=== PATIENT | female | born 1980 | race Caucasian/White ===

== ENCOUNTER 2024-07-13 14:58 | Emergency (ER) | payer BC, SELFPAY ==
[2024-07-13 15:04] VITALS: BP 149/84
[2024-07-13 15:27] LABS: % Basophils 0.4 % (0-2); % Eosinophils 3.2 % (0-6); % Immature Granulocytes 0.2 % (0-0.5); % Lymphocytes 27.6 % (20.5-51.1); % Monocytes 8.2 % (1.7-9.3); % Neutrophils 60.4 % (42.2-75.2); Absolute Eosinophils 0.2 10^3/uL (0-0.7); Absolute Lymphocytes 1.5 10^3/uL (1.2-3.4); Absolute Monocytes 0.4 10^3/uL (0.1-0.6); Absolute Neutrophils 3.2 10^3/uL (1.4-6.5); Hematocrit 37.7 % (37.0-47.0); Hemoglobin 13.1 g/dL (12.0-16.0); Mean Corp Hgb Conc. 34.7 g/dL (33.0-37.0); Mean Corpuscular Hgb 29.2 pg (27.0-31.0); Mean Platelet Volume 10.8 fL (7.4-10.4); Nucleated Red Blood Cells % 0 %; Platelet Count 246 10^3/uL (130-400); Red Blood Cell Count 4.49 10^6/uL (4.20-5.40); Red Cell Dist. Width 13.5 % (11.5-14.5); White Blood Cell Count 5.4 10^3/uL (4.8-10.8)
[2024-07-13 15:30] LABS: Urine Albumin Negative (Neg - Trace); Urine Bilirubin Negative (Negative); Urine Character Clear (Clear); Urine Color Yellow; Urine Glucose 3+ (Negative); Urine Ketone Negative (Negative); Urine Leukocyte Negative (Negative); Urine Nitrite Negative (Negative); Urine Occult Blood Negative (Negative); Urine Specific Gravity 1.015 (<1.030); Urine Urobilinogen Negative (Neg - 1+)
[2024-07-13 15:37] LABS: HCG, Serum Qualitative Screen Negative
[2024-07-13 15:43] LABS: ALT (SGPT) 12 U/L (0-35); AST (SGOT) 16 U/L (14-36); Alkaline Phosphatase 53 U/L (38-126); Blood Urea Nitrogen 8 mg/dl (7-17); Calcium 9.5 mg/dl (8.4-10.2); Carbon Dioxide 28 mmol/L (22-30); Chloride 103 mmol/L (98-107); Glucose 210 mg/dl (70-99); Sodium 136 mmol/L (135-145); Total Bilirubin 0.6 mg/dl (0.2-1.3); Total Protein 6.6 g/dl (6.3-8.2); eGFR > 60.00
[2024-07-13 15:58] VITALS: BMI 32.3
--- NOTE | 2024-07-13 18:35 | ED.GENMED ---
History of Present Illness
General
Chief Complaint: Flank Pain
Source: patient
Exam Limitations: none
Time Seen by Provider: 07/13/24 16:34
Nursing documentation reviewed up to this point in time: agreed with
History of Present Illness
History of Present Illness:
44-year-old female past medical history of diabetes presenting to the emergency department today with concerns of left-sided flank discomfort over the past week. Was started on Cipro by the primary care doctor but did not have any specific testing
prior to starting this medication. Pain seems to be worsened in some positions and seems to improve when standing up. Denies any fevers chest pain shortness of breath no vomiting. Some mild nausea.
Past History
Past History
ED Past Medical History: IDDM
ED Past Surgical History:
Social History
Tobacco: Non-smoker
Alcohol: Occasional
Personal:
Living: with family
Employment: Employed
Review of Systems
Review of Systems
Allergies reviewed?: Yes
All Other Systems: ROS reviewed and negative except as documented in HPI and ROS
Phy Exam
Physical Exam
Physical Exam:
GENERAL: Alert , in no apparent distress
EYE: pupils equal and reactive
NECK: Supple, no significant adenopathy.
ENT: o/p clr, mmm.
CARDIAC: Regular rate and rhythm .
LUNGS: Clear breath sounds bilaterally, no acute respiratory distress, no wheezes/rales/rhonchi
ABDOMEN: Mild left-sided CVA pain to percussion. Soft, without focal tenderness, no r/g, no cvat
NEUROLOGICAL: Alert and oriented, no focal neuro deficits
SKIN: Warm and dry, skin intact.
MUSCULOSKELETAL: No edema, well perfused.
PSYCH: Normal and appropriate interaction.
Course
Orders/Labs/Results
Orders:
Orders
07/13/24 15:08
Test Result ONCE
07/13/24 15:13
Urinalysis Reflex To Culture Urgent
Date Specimen was Collected: 07/13/24
Time Specimen was Collected: 15:08
07/13/24 15:15
Complete Blood Count/With Diff Urgent
Comprehensive Metabolic Panel Urgent
HCG, Serum Qualitative Screen Urgent
07/13/24 16:39
CT Abd/pel Without Iv Or Oral Urgent
Comment:
Reason For Exam: flank pain urine sytmpoms
07/13/24 18:03
EKG- Treatment ONCE
Abnormal Lab Results
07/13/24 07/13/24
15:13 15:15
MPV 10.8 H fL
(7.4-10.4)
Glucose 210 H mg/dl
(70-99)
Urine Glucose 3+ A
(Negative)
07/13/24 15:15
07/13/24 15:15
Vital Signs
Initial and Last Documented VS:
Initial Vital Signs
Temp Pulse Resp BP Pulse Ox
98.0 F 71 18 149/84 100
07/13/24 15:04 07/13/24 15:04 07/13/24 15:04 07/13/24 15:04 07/13/24 15:04
Last Documented Vital Signs
Temp Pulse Resp BP Pulse Ox
98.0 F 71 18 149/84 100
07/13/24 15:04 07/13/24 15:04 07/13/24 15:04 07/13/24 15:04 07/13/24 15:04
MDM/Problems Addressed
MDM/Problems Addressed:
44-year-old female presenting to the emergency department today with concerns of left-sided flank discomfort over the past week or so. On arrival mildly hypertensive otherwise vital signs are normal. Afebrile with normal pulse labs unremarkable
other than elevated glucose level. Patient does have a history of diabetes. Urinalysis without evidence of infection. No evidence of emergent process on CT patient with likely mechanical pain stable for outpatient management. Return precautions
given.
*Critical Care Note
Total Time (30-74mins, 75-104mins- exclusive of procedures): Not Applicable
ED Attending Note
-
Portions of this chart may have been created with voice recognition software.� Occasional wrong word or��sound alike� substitutions may have occurred due to the inherent limitations of voice recognition software.
Discharge Plan
Departure
Patient Disposition: Home (Routine Discharge)
Date of Disposition: 07/13/24
Time of Disposition: 18:52
Patient with high blood pressure during this ER visit?: No
Condition: Good
Covid-19: Not Applicable
Discharge Problem:
Low back pain
Instructions: Back Pain
Prescriptions:
No Action
nitrofurantoin macrocrystal 100 mg capsule
100 mg PO Q12H 5 Days Qty: 10 0RF
Referrals:
Rosalina Mathews MD [Family Provider] -
Activity Restrictions/Additional Instructions:
You came to the emergency department today with concerns of back discomfort. Here you have a reassuring assessment. Please closely as an outpatient. Return for any worsening, new or concerning symptoms.
Interventions
Interventions:
*Risk Screen - Suicide Last Done: 07/13/24 15:04
*General Assessment Last Done: 07/13/24 15:04
*Neglect/Abuse Screening Last Done: 07/13/24 19:01
*ED COVID-19 Vaccine History Last Done: 07/13/24 15:53
*Nursing Disposition Last Done: 07/13/24 19:01
PM-Ozgvvq-Zjgfavmcqk Assessment Last Done: 07/13/24 15:53
ED-Female Genitourinary Assessment Last Done: 07/13/24 15:53
Discharge Date and Time
Discharge Date/Time: 07/13/24 19:02
Print Language: [place]
== END 2024-07-13 19:02 | disposition home or self-care (01) ==
LOC: EMR 14:58
PROVIDERS: EMERGENCY PHYSICIAN Emergency Medicine; FAMILY PHYSICIAN Internal Medicine
DX: M54.50 Low back pain, unspecified (principal); E11.65 Type 2 diabetes mellitus with hyperglycemia
CPT/HCPCS: 99284; 74176; 80053; 81003; 84703; 85025

== ENCOUNTER 2024-09-06 13:32 | Emergency (ER) | payer BC, SELFPAY ==
[2024-09-06 13:34] VITALS: BP 162/93
[2024-09-06 14:03] LABS: % Basophils 0.3 % (0-2); % Eosinophils 2.6 % (0-6); % Immature Granulocytes 0.3 % (0-0.5); % Lymphocytes 25.2 % (20.5-51.1); % Monocytes 8.8 % (1.7-9.3); % Neutrophils 62.8 % (42.2-75.2); Absolute Eosinophils 0.2 10^3/uL (0-0.7); Absolute Lymphocytes 1.5 10^3/uL (1.2-3.4); Absolute Monocytes 0.5 10^3/uL (0.1-0.6); Absolute Neutrophils 3.7 10^3/uL (1.4-6.5); Hematocrit 36.6 % (37.0-47.0); Hemoglobin 12.9 g/dL (12.0-16.0); Mean Corp Hgb Conc. 35.2 g/dL (33.0-37.0); Mean Corpuscular Hgb 28.9 pg (27.0-31.0); Mean Corpuscular Volume 81.9 fL (81.0-99.0); Mean Platelet Volume 11.1 fL (7.4-10.4); Nucleated Red Blood Cells % 0 %; Platelet Count 208 10^3/uL (130-400); Red Blood Cell Count 4.47 10^6/uL (4.20-5.40); Red Cell Dist. Width 13.4 % (11.5-14.5); White Blood Cell Count 5.9 10^3/uL (4.8-10.8)
[2024-09-06 14:08] LABS: HCG, Serum Qualitative Screen Negative
[2024-09-06 14:09] LABS: ALT (SGPT) 11 U/L (0-35); AST (SGOT) 15 U/L (14-36); Albumin 4.3 g/dl (3.5-5.0); Alkaline Phosphatase 48 U/L (38-126); Blood Urea Nitrogen 9 mg/dl (7-17); Calcium 9.3 mg/dl (8.4-10.2); Carbon Dioxide 24 mmol/L (22-30); Chloride 106 mmol/L (98-107); Glucose 238 mg/dl (70-99); Sodium 136 mmol/L (135-145); Total Bilirubin 0.8 mg/dl (0.2-1.3); Total Protein 6.8 g/dl (6.3-8.2); eGFR > 60.00
[2024-09-06 17:13] VITALS: BP 183/89
--- NOTE | 2024-09-06 17:27 | ED.GENMED ---
History of Present Illness
General
Chief Complaint: Abdominal Pain
Source: patient
Time Seen by Provider: 09/06/24 17:08
History of Present Illness
History of Present Illness:
44-year-old female presents to the emergency room complaining of pain in her right flank radiating down to the groin area. Patient states that waxes and wanes in intensity. Nothing really seems to make it better or worse. She had a similar
episode of pain which she thought was related to shingles as she has had several episodes of shingles. The rash is typically come out on her left neck. She had noted some brownish discoloration to her urine. She denies any fever or chills. She
denies any dysuria or frequency. She denies nausea vomiting or diarrhea. She has had previous C-sections but no other abdominal surgery.
Past History
Past History
ED Past Medical History: IDDM
ED Past Surgical History:
Social History
Tobacco: Non-smoker
Alcohol: Occasional
Personal:
Living: with family
Employment: Employed
Phy Exam
Physical Exam
Physical Exam:
General: Awake, Alert, Oriented X3. No acute distress.
Vitals: unremarkable
Head: Atraumatic
Eyes: Pupils equal, EOMI
Throat: Airway intact, no exudates
Neck: Trachea midline
Lungs: Clear and equal b/l
Heart: Regular rate, no murmurs
Abd: Soft, Nontender, No pulsatile mass
Back: No CVA tenderness to percussion
Neuro: Nonfocal
Skin: Warm, dry, no rash
Extremities: pulses equal b/l, no edema
Course
Orders/Labs/Results
Orders:
Orders
09/06/24 13:36
Test Result ONCE
09/06/24 13:45
Complete Blood Count/With Diff Urgent
Comprehensive Metabolic Panel Urgent
HCG, Serum Qualitative Screen Urgent
09/06/24 17:24
Ketorolac [Toradol] 15 mg IV NOW STA
09/06/24 17:26
CT Abd/pelvis W Iv Cont Urgent
Comment:
Reason For Exam: rlq abd pain
09/06/24 20:07
Urinalysis Reflex To Culture Urgent
Date Specimen was Collected: 09/06/24
Time Specimen was Collected: 19:52
Urine Microscopic Reflex Cult Urgent
Abnormal Lab Results
09/06/24 09/06/24
13:45 20:07
Hct 36.6 L %
(37.0-47.0)
MPV 11.1 H fL
(7.4-10.4)
Glucose 238 H mg/dl
(70-99)
Urine Ketones 1+ A
(Negative)
Urine Albumin (Reflex) 1+ A
(Neg - Trace)
09/06/24 13:45
09/06/24 13:45
Vital Signs
Initial and Last Documented VS:
Initial Vital Signs
Temp Pulse Resp BP Pulse Ox
98.3 F 73 16 162/93 99
09/06/24 13:34 09/06/24 13:34 09/06/24 13:34 09/06/24 13:34 09/06/24 13:34
Last Documented Vital Signs
Temp Pulse Resp BP Pulse Ox
98.3 F 63 18 139/77 100
09/06/24 13:34 09/06/24 20:55 09/06/24 20:55 09/06/24 20:55 09/06/24 20:55
MDM/Problems Addressed
Differential Diagnosis Includes:
Appendicitis, ovarian cyst, kidney stone, urinary tract infection
MDM/Problems Addressed:
Patient presents with right flank pain rating to the groin. Presentation seems most consistent with a kidney stone however her CT does not show evidence of a stone or hydronephrosis. Urinalysis is basically normal. Suspect more musculoskeletal
etiology that the patient has this history of zoster. She has Valtrex at home and so we will recommend she take this for 5 days in case this does field return repairer to be herpes zoster. Recommend follow-up with the primary care provider. Certainly no
evidence for an unstable process requiring hospitalization
*Radiology
Radiology exam reviewed: radiology read reviewed
*Pulse Oximetry
Patient hypoxic: no
*Critical Care Note
Total Time (30-74mins, 75-104mins- exclusive of procedures): Not Applicable
ED Attending Note
-
Portions of this chart may have been created with voice recognition software.� Occasional wrong word or��sound alike� substitutions may have occurred due to the inherent limitations of voice recognition software.
Discharge Plan
Departure
Patient Disposition: Home (Routine Discharge)
Date of Disposition: 09/06/24
Time of Disposition: 20:57
Patient with high blood pressure during this ER visit?: No
Condition: Good
Discharge Problem:
Abdominal pain
Instructions: Abdominal Pain
Prescriptions:
No Action
nitrofurantoin macrocrystal 100 mg capsule
100 mg PO Q12H 5 Days Qty: 10 0RF
Referrals:
Rosalina Mathews MD [Family Provider] -
Interventions
Interventions:
*Risk Screen - Suicide Last Done: 09/06/24 13:36
*General Assessment Last Done: 09/06/24 17:17
*Neglect/Abuse Screening Last Done: 09/06/24 13:36
*ED- Fall Risk Assessment Last Done: 09/06/24 17:17
*ED COVID-19 Vaccine History Last Done: 09/06/24 17:17
*Nursing Disposition Last Done: 09/06/24 21:10
KQ-Klynwb-Gdvtitdazd Assessment Last Done: 09/06/24 17:13
ED-Female Genitourinary Assessment Last Done: 09/06/24 17:13
Discharge Date and Time
Discharge Date/Time: 09/06/24 21:10
Print Language: TAJIK
[2024-09-06] MEDS: TORADOL 15 MG IV (17:35)
[2024-09-06 20:37] LABS: Urine Albumin 1+ (Neg - Trace); Urine Bilirubin Negative (Negative); Urine Character Clear (Clear); Urine Color Yellow; Urine Glucose Negative (Negative); Urine Ketone 1+ (Negative); Urine Leukocyte Negative (Negative); Urine Nitrite Negative (Negative); Urine Occult Blood Negative (Negative); Urine Urobilinogen Negative (Neg - 1+); Urine pH 6.5 (5.0-9.0)
[2024-09-06 20:55] VITALS: BP 139/77
[2024-09-06 21:03] LABS: Urine Red Blood Cell 0-2 /HPF (0-2); Urine White Cell 0-2 /HPF (0-5)
== END 2024-09-06 21:10 | disposition home or self-care (01) ==
LOC: EMR 13:32
PROVIDERS: Emergency Medicine; EMERGENCY PHYSICIAN Emergency Medicine; FAMILY PHYSICIAN Internal Medicine
DX: R10.9 Unspecified abdominal pain (principal); E11.9 Type 2 diabetes mellitus without complications; Z79.4 Long term (current) use of insulin
CPT/HCPCS: 96374; 99284; 74177; 80053; 81003; 81015; 84703; 85025; Q9967